=== PATIENT | male | born 1950 | race Caucasian/White ===

== ENCOUNTER 2020-01-07 08:34 | Inpatient (IN) | payer MEDICARE, MEDICAID ==
[~2020-01-07] VITALS: Ht 180.3 cm; Wt 52.9 kg
[2020-01-07] MEDS ORDERED: SODIUM CHLORIDE 0.9% 500 ML IV ONE (09:12)
[2020-01-07] MEDS ORDERED: ACETAMINOPHEN 650MG SUPP PR ONE (09:15)
[2020-01-07 09:34] LABS: HEMATOCRIT. 38.4 % (42.0-52.0); HEMOGLOBIN. 12.9 g/dL (14.0-18.0); MEAN CORPUSCULAR HEMOGLOBIN 31.6 pg (28.0-32.0); MEAN CORPUSCULAR VOLUME 94.3 fL (80.0-94.0); MEAN PLATELET VOLUME 8.6 fl (7.4-10.4); PLATELET 161 x1000/uL (130-400); RED BLOOD CELL COUNT 4.07 mill/uL (4.7-6.1); RED CELL DISTRIBUTION WIDTH 18.7 % (11.6-14.6)
[2020-01-07] MEDS ORDERED: LORAZEPAM 2MG/ML CPJ IV ONE ×2 (09:45→10:00)
[2020-01-07 09:48] LABS: CHLORIDE 104 mEq/L (98-107)
[2020-01-07 09:56] LABS: CREATINE KINASE 118 IU/L (39-308)
[2020-01-07 10:19] LABS: D-DIMER 0.6 mg/L FEU (<0.50); INR 1.1; PROTHROMBIN TIME 11.8 sec (9.6-11.0)
[2020-01-07 10:24] LABS: PLATELET ESTIMATE NORMAL
[2020-01-07] MEDS ORDERED: LEVOFLOXACIN 500MG PREMIX 100 ML IV ONE (10:30)
[2020-01-07 11:06] LABS: CLARITY URINE CLOUDY (CLEAR); COLOR URINE YELLOW (YELLOW); KETONES URINE NEGATIVE (NEGATIVE); LEUKOCYTE ESTERASE URINE 1+ (NEGATIVE); NITRITE URINE NEGATIVE (NEGATIVE); OCCULT BLOOD URINE 1+ (NEGATIVE); PROTEIN URINE 2+ (NEGATIVE)
[2020-01-07 12:12] LABS: *AMPHETAMINES SCREEN URINE NEGATIVE (NEGATIVE); *BARBITURATES SCREEN URINE NEGATIVE (NEGATIVE); *BENZODIAZEPINES SCREEN URINE NEGATIVE (NEGATIVE); CANNABINOID URINE SCREEN NEGATIVE (NEGATIVE); METHADONE URINE SCREEN NEGATIVE (NEGATIVE); OPIATES URINE SCREEN NEGATIVE (NEGATIVE)
[2020-01-07 12:13] LABS: PHENCYCLIDINE URINE SCREEN NEGATIVE (NEGATIVE)
[2020-01-07 12:14] LABS: *COCAINE SCREEN URINE NEGATIVE (NEGATIVE)
[2020-01-07] MEDS: CEFTRIAXONE 1 G PREMIX 50 ML IV SCH (14:36)
[2020-01-07] MEDS: AZITHROMYCIN 250 MG in DEXT 5% WATER 250 ML IV SCH (14:43)
[2020-01-07 16:42] VITALS: BP 109/64
[2020-01-07] MEDS ORDERED: IPRA3AMP9 HHN (18:45)
[2020-01-07] MEDS ORDERED: OMEP20TA2 MT (18:45)
[2020-01-07] MEDS ORDERED: AMLO10TA80 MT (18:45)
[2020-01-07] MEDS ORDERED: DOCU-150 MT (18:45)
[2020-01-07] MEDS ORDERED: ENOX40DI8 SQ (18:45)
[2020-01-07] MEDS ORDERED: TOPUD MT (18:45)
[2020-01-07] MEDS ORDERED: HYDR-4134 MT (18:45)
[2020-01-07] MEDS ORDERED: ASCO-339 MT (18:45)
[2020-01-07] MEDS ORDERED: OXYC-523 MT (18:45)
[2020-01-07] MEDS ORDERED: DIVA-75 MT (18:45)
[2020-01-07] MEDS ORDERED: QUET25TA34 MT (18:45)
[2020-01-07] MEDS ORDERED: POTA10CA42 MT (18:45)
[2020-01-07] MEDS ORDERED: FOLI-43 MT (18:45)
[2020-01-07] MEDS ORDERED: CLONIDINE 0.1MG TABLET PO PRN (20:45)
[2020-01-07] MEDS ORDERED: ONDANSETRON HCL 4MG/2ML INJ IV PRN (20:45)
[2020-01-07] MEDS ORDERED: ACETAMINOPHEN 650MG/20.3ML UDC GT PRN (20:45)
[2020-01-07] MEDS ORDERED: HYDROCODONE/ACETAMINOPHEN 5/325MG TABLET PO PRN (20:45)
[2020-01-07] MEDS: FOLIC ACID 1MG TABLET PO SCH (21:17)
[2020-01-07] MEDS: AMLODIPINE 10MG TABLET PO SCH (21:18)
[2020-01-07] MEDS: SODIUM CHLORIDE 0.9% 1,000 ML IV SCH (21:18)
[2020-01-07] MEDS: QUETIAPINE FUMARATE 25MG TABLET PO SCH (21:19)
[2020-01-07] MEDS: ENOXAPARIN 40MG/0.4ML SYR SUBCUT SCH (21:20)
[2020-01-07] MEDS: DIVALPROEX SODIUM 500MG DR TABLET PO SCH (21:53)
[2020-01-07] MEDS: LORAZEPAM 2MG/ML CPJ IV PRN (21:56)
[2020-01-08 00:15] VITALS: BP 96/56
[2020-01-08] MEDS: LORAZEPAM 2MG/ML CPJ IV PRN ×2 (02:06→09:29)
[2020-01-08 04:00] VITALS: BP 134/59
[2020-01-08] MEDS: DIVALPROEX SODIUM 500MG DR TABLET PO SCH ×3 (05:49→21:47)
[2020-01-08] MEDS: OMEPRAZOLE 20MG CAPSULE EXTENDED RELEASE PO SCH (05:50)
[2020-01-08 07:55] LABS: VITAMIN B12 SERUM 1242 pg/mL (211-911)
[2020-01-08 07:59] LABS: FOLIC ACID (FOLATE) SERUM > 20.00 ng/mL (>5.38)
[2020-01-08 08:00] VITALS: BP 137/89
[2020-01-08] MEDS: AMLODIPINE 10MG TABLET PO SCH (09:00)
[2020-01-08] MEDS: FOLIC ACID 1MG TABLET PO SCH (09:00)
[2020-01-08] MEDS: HYDRALAZINE HCL 25MG TABLET PO SCH ×3 (09:00→17:00)
[2020-01-08 12:00] VITALS: BP 118/82
[2020-01-08] MEDS: AZITHROMYCIN 250 MG in DEXT 5% WATER 250 ML IV SCH (14:48)
[2020-01-08 15:41] LABS: CHLORIDE 106 mEq/L (98-107)
[2020-01-08 15:42] LABS: BASOPHILS % 0.4 % (0.0-2.0); HEMATOCRIT. 36.8 % (42.0-52.0); HEMOGLOBIN. 12.4 g/dL (14.0-18.0); LYMPHOCYTES % 10.3 % (20.0-50.0); MEAN CORPUSCULAR HEMOGLOBIN 31.8 pg (28.0-32.0); MEAN CORPUSCULAR VOLUME 94.5 fL (80.0-94.0); MEAN PLATELET VOLUME 8.1 fl (7.4-10.4); NEUTROPHILS % 76.3 % (40.0-76.0); PLATELET 103 x1000/uL (130-400)
[2020-01-08 16:00] VITALS: BP 126/65
[2020-01-08] MEDS: CEFTRIAXONE 1 G PREMIX 50 ML IV SCH (16:27)
[2020-01-08] MEDS: SODIUM CHLORIDE 0.9% 1,000 ML IV SCH (16:28)
[2020-01-08] MEDS ORDERED: HALOPERIDOL LACTATE 5MG/ML VIAL IM PRN (19:15)
[2020-01-08] MEDS: QUETIAPINE FUMARATE 25MG TABLET PO SCH (21:00)
[2020-01-08] MEDS: LEVETIRACETAM 500MG PREMIX 100 ML IV SCH (21:46)
[2020-01-08] MEDS: ENOXAPARIN 40MG/0.4ML SYR SUBCUT SCH (21:47)
[2020-01-09] VITALS: BP 123/77
[2020-01-09] MEDS: DIVALPROEX SODIUM 500MG DR TABLET PO SCH ×2 (04:08→13:12)
[2020-01-09] MEDS: OMEPRAZOLE 20MG CAPSULE EXTENDED RELEASE PO SCH (04:08)
[2020-01-09 08:30] VITALS: BP 104/54
[2020-01-09] MEDS: HYDRALAZINE HCL 25MG TABLET PO SCH ×2 (08:40→12:45)
[2020-01-09] MEDS: AMLODIPINE 10MG TABLET PO SCH (08:41)
[2020-01-09] MEDS: LEVETIRACETAM 500MG PREMIX 100 ML IV SCH (08:43)
[2020-01-09] MEDS: FOLIC ACID 1MG TABLET PO SCH (08:44)
[2020-01-09 09:43] LABS: BASOPHILS % 0.3 % (0.0-2.0); EOSINOPHILS % 0.4 % (0.0-5.0); HEMATOCRIT. 33.8 % (42.0-52.0); HEMOGLOBIN. 11.3 g/dL (14.0-18.0); LYMPHOCYTES % 14.9 % (20.0-50.0); MEAN CORPUSCULAR HEMOGLOBIN 31.5 pg (28.0-32.0); MEAN PLATELET VOLUME 7.9 fl (7.4-10.4); MONOCYTES % 14.2 % (2.0-8.0); NEUTROPHILS % 70.2 % (40.0-76.0); PLATELET 100 x1000/uL (130-400); RED BLOOD CELL COUNT 3.59 mill/uL (4.7-6.1); RED CELL DISTRIBUTION WIDTH 18.2 % (11.6-14.6)
[2020-01-09 09:49] LABS: CHLORIDE 106 mEq/L (98-107)
[2020-01-09 11:41] VITALS: BP 117/69
[2020-01-09] MEDS: SODIUM CHLORIDE 0.9% 1,000 ML IV SCH (11:42)
[2020-01-09] MEDS ORDERED: HYDR-4134 PO (12:21)
[2020-01-09] MEDS: LORAZEPAM 2MG/ML CPJ IV PRN (12:51)
[2020-01-09 13:08] VITALS: BP 121/68
[2020-01-09] MEDS: AZITHROMYCIN 250 MG in DEXT 5% WATER 250 ML IV SCH (13:49)
[2020-01-09] MEDS: CEFTRIAXONE 1 G PREMIX 50 ML IV SCH (14:13)
[2020-01-09 14:18] VITALS: BP 121/68
[2020-01-09] MEDS ORDERED: AZITHROMYCIN 250 MG TABLET PO SCH (15:00)
[2020-01-09] MEDS ORDERED: FAMOTIDINE 20MG TABLET PO SCH (21:00)
== END 2020-01-09 15:45 | DRG 189 ==
LOC: ER 08:34 → EDBEDREQ 08:51 → MICUSO 10:21 → EDBEDREQ 10:29 → 7WST 15:52 → 5WST 23:43
PROVIDERS: ADMIT Internal Medicine; ATTEND Internal Medicine
DX: J96.00 Acute respiratory failure, unspecified whether with hypoxia or hypercapnia (principal); G92 Toxic encephalopathy; J18.9 Pneumonia, unspecified organism; J15.9 Unspecified bacterial pneumonia; J44.0 Chronic obstructive pulmonary disease with (acute) lower respiratory infection; N39.0 Urinary tract infection, site not specified; R47.01 Aphasia; B34.9 Viral infection, unspecified; D53.9 Nutritional anemia, unspecified; D72.810 Lymphocytopenia; D72.821 Monocytosis (symptomatic); G40.909 Epilepsy, unspecified, not intractable, without status epilepticus; I10 Essential (primary) hypertension; K21.9 Gastro-esophageal reflux disease without esophagitis; Z79.01 Long term (current) use of anticoagulants; Z93.3 Colostomy status; Z03.818 Encounter for observation for suspected exposure to other biological agents ruled out
CPT/HCPCS: 36415; 71045; 80048; 80053; 80061; 80305; 81003; 82140; 82550; 82607; 82728; 82746; 83036; 83540; 83550; 83605; 83615; 83880; 84145; 84443; 84484; 85025; 85379; 85384; 86140; 87804; 93005; 99291; J0456; J0696; J1630; J1650; J1953; J1956; J2060; J7030; J7040; J7060; U0003-CS